=== PATIENT | male | born 1975 | race Caucasian/White ===

== ENCOUNTER 2022-02-04 18:04 | Emergency (ER) | payer BC ==
[~2022-02-04] VITALS: Ht 177.8 cm; Wt 100.0 kg
[2022-02-04] MEDS ORDERED: KETOROLAC TROMETHAMINE 60 MG/2 ML VIAL IM ONE (22:00)
[2022-02-04] MEDS ORDERED: HYDROCODONE/ACETAMINOPHEN 5-325 MG TABLET PO ONE (22:45)
[2022-02-04 22:55] VITALS: BP 139/92
[2022-02-08] MEDS ORDERED: NAPR-1193 PO (00:37)
[2022-02-08] MEDS ORDERED: HYDR-4723 PO (00:37)
== END 2022-02-05 00:26 | disposition home or self-care (01) ==
LOC: EMS 18:11
DX: S52.572A Other intraarticular fracture of lower end of left radius, initial encounter for closed fracture (principal); F10.20 Alcohol dependence, uncomplicated; F17.210 Nicotine dependence, cigarettes, uncomplicated; V29.40XA Motorcycle driver injured in collision with unspecified motor vehicles in traffic accident, initial encounter; Y93.89 Activity, other specified; Y92.410 Unspecified street and highway as the place of occurrence of the external cause; Y99.8 Other external cause status; Z88.6 Allergy status to analgesic agent
CPT/HCPCS: 99284; 70450; 73110; 29125; 96372; J1885

== ENCOUNTER 2024-06-08 22:33 | Emergency (ER) | payer BC, MEDICAID ==
[~2024-06-08] VITALS: Ht 177.8 cm; Wt 104.0 kg
[~2024-06-08 22:33] MED LIST: HYDR-4062 PO; NAPR-1193 PO
[2024-06-08 23:05] VITALS: BP 145/73; PULSE 77; RESP 16; TEMP 98.5; O2SAT 99
[2024-06-09] MEDS: FLUORESCEIN SODIUM 1 MG STRIP OD ONE (01:43)
[2024-06-09] MEDS: PROPARACAINE HCL 0.5% 15 ML OPHTHALMIC SOLUTION OD ONE (01:43)
[2024-06-09] MEDS: ERYTHROMYCIN 0.5% 3.5 GM TUBE OPHTHALMIC OINTMENT OD ONE (03:47)
== END 2024-06-09 03:48 | disposition home or self-care (01) ==
LOC: EMS 22:33
DX: T15.01XA Foreign body in cornea, right eye, initial encounter (principal); F17.210 Nicotine dependence, cigarettes, uncomplicated; Z88.5 Allergy status to narcotic agent; W44.8XXA Other foreign body entering into or through a natural orifice, initial encounter; Y93.89 Activity, other specified; Y92.89 Other specified places as the place of occurrence of the external cause; Y99.8 Other external cause status
CPT/HCPCS: 65220; 70480; 99284; J9035; Z7502; Z7610